=== PATIENT | male | born 1990 | race American Indian/Alaskan Native ===

== ENCOUNTER 2016-06-20 09:34 | Outpatient (CLI) | payer OTHER ==
--- NOTE | 2016-06-20 10:36 | XRay Report ---
PA and lateral: There is a small patchy infiltrate in the periphery of the right upper lung only seen in the frontal projection. The chest is otherwise clear bilaterally. Mediastinal contour is unremarkable. No prior study for comparison. Impression: Small peripheral infiltrate which may represent pneumonia.
== END 2016-06-20 09:35 | disposition home or self-care (01) ==
LOC: SPVIMAG 09:34
DX: R91.8 Other nonspecific abnormal finding of lung field (principal)
CPT/HCPCS: 71020

== ENCOUNTER 2016-11-15 05:10 | Emergency (ER) | payer OTHER ==
--- NOTE | 2016-11-15 05:50 | Emergency Department Report ---
Abscess Boil HPI - HPI Chief Complaint: Skin/Abscess/Foreign Body Stated Complaint: ABCESS Time Seen by Provider: 11/15/16 05:44 Duration: 1 Day Location: Lower Extremity Severity: Mild History: Yes Pain, No Fever, No Purulent Drainage, No Numbness, No Foreign Body , No Previous History, No Insect Bite HPI: 26-year-old male past medical history none presents with complaint of 2 days of erythema and developing abscess to right lateral calf region. Deneis any fever or chills. Deneis any purulent drainage. Visible small purulent abscess head visible in middle of 7 cm diamteer cellultiis area. Pt works as RN in hospital. Home Medications: Previous Rx's Medication Instructions Recorded Last Taken Type Cephalexin [Keflex] 500 mg PO Q12HR #14 cap 11/15/16 Unknown Rx Ibuprofen [Motrin] 600 mg PO Q8H PRN #25 tablet 11/15/16 Unknown Rx Sulfamethoxazole/Trimethoprim 1 each PO BID #14 tablet 11/15/16 Unknown Rx [Bactrim DS TAB] Allergies/Adverse Reactions: Allergies Allergy/AdvReac Type Severity Reaction Status Date / Time No Known Allergies Allergy Unverified 12/27/15 16:46 ED Review of Systems ROS: Stated complaint: ABCESS Other details as noted in HPI Constitutional: denies: chills, fever Eyes: denies: eye pain, eye discharge, vision change ENT: denies: ear pain, throat pain Respiratory: denies: cough, shortness of breath, wheezing Cardiovascular: denies: chest pain, palpitations Endocrine: no symptoms reported Gastrointestinal: denies: abdominal pain, nausea, diarrhea Genitourinary: denies: urgency, dysuria Musculoskeletal: denies: back pain, joint swelling, arthralgia Skin: as per HPI, change in color (redness right calf), other. denies: rash, lesions Neurological: denies: headache, weakness, paresthesias Psychiatric: denies: anxiety, depression Hematological/Lymphatic: denies: easy bleeding, easy bruising ED Past Medical Hx - Past Medical History Previous Medical History?: No - Surgical History Past Surgical History?: No - Social History Smoking Status: Never Smoker Substance Use Type: Alcohol - Medications Home Medications: Home Medications Medication Instructions Recorded Confirmed Last Taken Type Cephalexin [Keflex] 500 mg PO Q12HR #14 cap 11/15/16 Unknown Rx Ibuprofen [Motrin] 600 mg PO Q8H PRN #25 tablet 11/15/16 Unknown Rx Sulfamethoxazole/Trimethoprim 1 each PO BID #14 tablet 11/15/16 Unknown Rx [Bactrim DS TAB] ED Abscess Boil Physical Exam - Exam General: Vital signs noted. No distress. Alert and acting appropriately. Front/Back of Body, Lg (Color): 1 - absess lateral right mid calf, 7 cm diameter cellultiis with 2 cm abscess centrally Size: >5 cm (7 cm area of cellulitis) Exam: Yes Tenderness, Yes Fluctuance, Yes Surrounding Cellulites/Erythema, No Lymphangitis, No Crepitation, No Heart Murmur, No Normal Neurologic Exam, No Normal Circulation I & D Note - I & D Note I & D Note: small abscess I&D'd right lateral calf region, wound culture sent, minimal purulent drainage, 2 inches of 1/4 inch iodoform gauze packed into wound Critical care attestation.: If time is entered above; I have spent that time in minutes in the direct care of this critically ill patient, excluding procedure time. ED Medical Decision Making - Medical Decision Making A/P: Right calf abscess 1-Bactrim and Keflex twice a day 7 days 2-Motrin 600 mg when necessary 3-wound culture sent 4-I advised pt remove packing later today 5- patient instructed to return to the ED if he develops fevers chills reaccumulation of abscess or extension of cellulitis beyond marked borders ED Disposition Clinical Impression: Abscess of calf Disposition: DC-01 TO HOME OR SELFCARE Is pt being admited?: No Does the pt Need Aspirin: No Condition: Stable Instructions: Abscess Incision and Drainage (ED), Abscess (ED) Prescriptions: Cephalexin [Keflex] 500 mg PO Q12HR #14 cap Ibuprofen [Motrin] 600 mg PO Q8H PRN #25 tablet PRN Reason: Pain Sulfamethoxazole/Trimethoprim [Bactrim DS TAB] 1 each PO BID #14 tablet Referrals: PRIMARY CARE, [Primary Care Provider] - 3-5 Days Time of Disposition: 06:26
[2016-11-15 06:38] VITALS: BP 136/84
== END 2016-11-15 06:38 | disposition home or self-care (01) ==
LOC: ED 05:10
DX: L02.415 Cutaneous abscess of right lower limb (principal)
CPT/HCPCS: 87076; 87116; 87186